=== PATIENT | male | born 1995 | race Caucasian/White ===

== ENCOUNTER 2020-05-15 15:55 | Emergency (ER) | payer BC ==
[~2020-05-15 15:55] MED LIST: ELIMITE 5% CREA60 GM TOP; VISTARIL25 MG PO; ZOFRAN ODT 4 MG4 MG SL
== END 2020-05-15 17:00 | disposition home or self-care (01) ==
LOC: ER1 15:55
DX: U07.1 COVID-19 (principal); Z88.0 Allergy status to penicillin; Z88.6 Allergy status to analgesic agent
CPT/HCPCS: 99284